=== PATIENT | female | born 1990 | race Caucasian/White ===

== ENCOUNTER 2023-11-26 11:54 | Emergency (ER) | payer OTHER, SELFPAY ==
[2023-11-26 12:13] VITALS: BP 136/92; PULSE 97; RESP 16; TEMP 36.6; O2SAT 99; BMI 34.5
--- NOTE | 2023-11-26 12:15 | ED_ITS ---
HPI - General Adult General Chief complaint: Anxiety Stated complaint: anxiety ? dizzy shakey diff breathing hand numbnes Time Seen by Provider: 11/26/23 18:52 History of Present Illness HPI narrative: The patient is a generally healthy 33-year-old who was on no medications. She says that for the last several days she has felt a sense of an unpleasant sensation in her chest as well as numbness in her hands and her feet and a general sense of anxiety. These symptoms are worse at night and she has been unable to sleep for the last several days. She has had no fever, sweats, chills. No cough or sputum. No nausea or vomiting. No pain or swelling in her legs. She had been caring for an elderly aunt 2 weeks ago. The was expected but she is quite sad about it. Related Data Previous Rx's ?Medication ?Instructions ?Recorded trazodone 50 mg tablet 50 mg PO BEDTIME PRN sleep #7 tabs 11/26/23 Allergies Allergy/AdvReac Type Severity Reaction Status Date / Time No Known Allergies Allergy Verified 11/26/23 12:17 Review of Systems 2 Review of Systems: Yes all other systems are reviewed and are negative [facility] Social History Social History Advance Directives: No Advance Directives Information Provided: No Physical Exam ED Vital Signs: Vital Signs - 24 hr 11/26/23 12:13 11/26/23 19:07 11/26/23 20:08 Temperature 97.8 F 98.0 F 98.0 F Pulse Rate 97 78 78 Respiratory Rate 16 16 16 Blood Pressure 136/92 H 117/82 117/82 Pulse Oximetry 99 98 Oxygen Delivery Method Room Air Room Air BMI result Body Mass Index 34.5 Const Other: The patient has the appearance of being a healthy 33-year-old. She does not appear in distress. HENMT Other: The face is symmetrical. ?Mucous membranes moist. Eyes Other: Pupils are round equal, conjunctivae are clear, extraocular movements intact Neck Other: No JVD, neck is supple Resp Effort & Inspection: normal respiratory effort Auscultation: clear to auscultation bilaterally Cardio Rate: regular rate Rhythm: regular rhythm Heart sounds: S1 normal heart sound present and S2 normal heart sound present GI Other: Abdomen is soft and nontender Skin Other: Skin is dry and unremarkable Neuro Other: The patient is awake and alert. Cranial nerves are grossly intact. She moves her extremities normally and seems grossly neurologically intact. Extrem Other: No calf swelling or tenderness. Course Course Course Narrative: This is an RME: Additional HPI, ROS, PE not included below will be deferred to primary provider. This is a 51-[id number]-female, with no known medical problems, presenting to the emergency department with a complaint of difficulty sleeping, increased anxiety, bilateral hand numbness, tingling, shortness of breath x 2 weeks. Reporting recent in the family, but otherwise no other changes. Reporting intermittent blurred vision and dizziness. She has not on control no recent travel, surgeries, hospitalizations. Plan: Labs, EKG Medications Administered Discontinued Medications Generic Name Dose Route Start Last Admin Trade Name Freq PRN Reason Stop Dose Admin Trazodone HCl 50 mg 11/26/23 19:28 11/26/23 19:59 Trazodone Hcl 50 Mg Tablet PO 11/26/23 19:29 50 mg ONCE ONE Administration Medical Decision Making Medical Decision Making MDM Narrative: the patient is a 33-year-old female who presents for evaluation of symptoms she has been experiencing for the last 2 weeks. She admits to feeling very anxious. She is having difficulty sleeping. She was also having somatic symptoms of chest pain as well as numbness of the hands and feet. An EKG is unremarkable. Labs are unremarkable. Clinically the patient does not appear acutely ill. She is PERC negative. My overall impression is that the patient has symptoms are likely related to anxiety and grief and poor sleeping. She does not have a primary care doctor. She recently moved back to this area from [place]. She has [employer]. She will be encouraged to try to get a regular doctor through the [facility] system. She will be given a prescription for trazodone to see if this helps her was sleeping. She was prescribed 7 tablets of 50 mg of trazodone to be taken at bedtime. Lab Data 11/26/23 12:44 11/26/23 12:44 Labs: Lab Results 11/26/23 11/26/23 Range/Units 12:44 19:27 WBC 11.4 H (4.8-10.8) X10*3/uL RBC 4.45 (4.20-5.50) X10*6/uL Hgb 14.1 (12.0-16.0) g/dl Hct 40.4 (37.0-47.0) % MCV 90.8 (80.0-98.0) fL MCH 31.7 (27.0-33.0) pg MCHC 34.9 (31.0-35.0) g/dl RDW 11.7 (11.0-16.0) % Plt Count 310 (160-400) X10*3/uL MPV 9.6 (9.4-12.3) fL Immature Gran % (Auto) 0.4 (0.0-0.4) % Neut % (Auto) 81.3 H (45-73) % Lymph % (Auto) 11.1 L (20-40) % [place] % (Auto) 5.5 (2-11) % Eos % (Auto) 1.3 (0-4) % Baso % (Auto) 0.4 (0-2) % Lymph # (Auto) 1.3 (1.2-4.9) X10*3/uL [place] # (Auto) 0.6 (0.1-1.2) X10*3/uL Eos # (Auto) 0.2 (0.0-0.4) X10*3/uL Baso # (Auto) 0.0 (0.0-0.2) X10*3/uL Abs Immat Gran (auto) 0.04 H (0.00-0.03) X10*3/uL Absolute Neuts (auto) 9.2 H (2.0-8.3) x10*3/uL Absolute Nucleated RBC 0.000 (0.0-0.012) X10*3/uL Nucleated RBC % (auto) 0.0 (0.0-0.2) /100WBC Sodium 141 (135-145) mmol/L Potassium 4.1 (3.3-5.1) mmol/L Chloride 107 (96-108) mmol/L Carbon Dioxide 24 (22-29) mmol/L Anion Gap 14 (12-20) BUN 15 (9-16) mg/dL Creatinine 0.76 (0.5-1.4) mg/dL Estim Creat Clear Calc 113.1 Estimated GFR > 60 Random Glucose 103 (60-115) mg/dL Calcium 9.9 (8.4-10.2) mg/dL Magnesium 2.2 (1.6-2.6) mg/dL Total Bilirubin 0.2 (0.0-1.0) mg/dL Direct Bilirubin < 0.2 (0.0-0.5) mg/dL AST 18 (5-31) U/L ALT 29 (0-31) U/L Alkaline Phosphatase 60 (39-117) U/L Troponin I High Sens < 2.7 (<3.5-17.0) ng/L Total Protein 7.6 (6.5-8.0) g/dL Albumin 4.7 (3.5-5.0) g/dL TSH 0.79 (0.32-4.0) uIU/mL Beta HCG, Quant < 2 mIU/mL Urine Color Yellow Urine Appearance Cloudy Urine pH 6.5 (5.0-9.0) Ur Specific [place] 1.010 (1.005-1.025) Urine Protein Negative (Neg-Trace) mg/dL Urine Glucose (UA) Negative (Negative) mg/dL Urine Ketones Negative (Negative) mg/dL Urine Blood Large (3+) H (Negative) Urine Nitrite Negative (Negative) Ur Leukocyte Esterase Negative (Negative) Urine RBC 11-20 H (0-2) /HPF Urine WBC 0-5 (0-5) /HPF Ur Squamous Epith Cells 6-10 (0-2) /HPF Urine Bacteria Trace (None Seen) Hyaline Casts 0-2 (0-2) /LPF Discharge Plan Discharge Clinical Impression: Difficulty sleeping, Anxiety Patient Disposition: Home, Self-Care Instructions: Insomnia (ED) Additional Instructions: Your medical testing today has been very reassuring. I do not think there is any dangerous medical process at work. I have sent a prescription for medication called trazodone that can help with sleep. You may try this to see if it helps with your sleeping difficulties. Please work on getting a new primary care doctor. You can contact [employer] in [place]. If at any point you would like to speak to somebody confidentially have out how you are feeling you can contact the [employer] [facility] [employer] 24 hours a day at their crisis hotline [phone]. Return to the emergency room if significantly worse. Prescriptions: New trazodone 50 mg tablet 50 mg PO BEDTIME PRN (Reason: sleep) Qty: 7 0RF Referrals: Kay kristen. [facility] [Provider Group] (anxiety, difficulty sleeping) Interventions: ED Discharge Assessment Last Done: 11/26/23 20:08 Discharge Date/Time: 11/26/23 20:09 Print Language: Ugandan
--- NOTE | 2023-11-26 12:20 | ECG_ITS ---
Test Reason : CP, SOB Blood Pressure : / mmHG Vent. Rate : 088 BPM Atrial Rate : 088 BPM P-R Int : 152 ms QRS Dur : 082 ms QT Int : 338 ms P-R-T Axes : 077 060 043 degrees QTc Int : 408 ms Normal sinus rhythm with sinus arrhythmia Normal ECG No previous ECGs available Referred By: Cheryl Meeks Electronically Signed By:Raymond Negrete
[2023-11-26 12:49] LABS: MANUAL DIFF FLAG NO
[2023-11-26 12:52] LABS: Basophils Percent Auto 0.4 % (0-2); Eosinophils Absolute Auto 0.2 X10*3/uL (0.0-0.4); Eosinophils Percent Auto 1.3 % (0-4); Hematocrit 40.4 % (37.0-47.0); Hemoglobin 14.1 g/dl (12.0-16.0); Imm Gran Abs Auto 0.04 X10*3/uL (0.00-0.03); Imm Gran Pct Auto 0.4 % (0.0-0.4); Lymphocytes Absolute Auto 1.3 X10*3/uL (1.2-4.9); Lymphocytes Percent Auto 11.1 % (20-40); Mean Corpuscular HGB Conc 34.9 g/dl (31.0-35.0); Mean Corpuscular Hemoglobin 31.7 pg (27.0-33.0); Mean Corpuscular Volume 90.8 fL (80.0-98.0); Mean Platelet Volume 9.6 fL (9.4-12.3); Monocytes Absolute Auto 0.6 X10*3/uL (0.1-1.2); Monocytes Percent Auto 5.5 % (2-11); Neutrophils Absolute Auto 9.2 x10*3/uL (2.0-8.3); Neutrophils Percent Auto 81.3 % (45-73); Platelet Count 310 X10*3/uL (160-400); Red Blood Count 4.45 X10*6/uL (4.20-5.50); Red Cell Distribution Width 11.7 % (11.0-16.0); White Blood Count 11.4 X10*3/uL (4.8-10.8)
[2023-11-26 13:19] LABS: Alanine Aminotransferase 29 U/L (0-31); Albumin Level 4.7 g/dL (3.5-5.0); Alkaline Phosphatase 60 U/L (39-117); Anion Gap 14 (12-20); Aspartate Amino Transferase 18 U/L (5-31); Bilirubin Direct < 0.2 mg/dL (0.0-0.5); Bilirubin Total 0.2 mg/dL (0.0-1.0); Blood Urea Nitrogen 15 mg/dL (9-16); Calcium 9.9 mg/dL (8.4-10.2); Carbon Dioxide 24 mmol/L (22-29); Chloride 107 mmol/L (96-108); Creatinine Clr Calc Pharmacy 113.1; Estimated Glomerular Filt Rate > 60; Glucose Random 103 mg/dL (60-115); Magnesium 2.2 mg/dL (1.6-2.6); Potassium 4.1 mmol/L (3.3-5.1); Sodium 141 mmol/L (135-145); Total Protein 7.6 g/dL (6.5-8.0)
[2023-11-26 13:21] LABS: HCG Quantitative < 2 mIU/mL; Troponin-I High Sensitivity < 2.7 ng/L (<3.5-17.0)
[2023-11-26 13:35] LABS: TSH reflex Free T4 0.79 uIU/mL (0.32-4.0)
[2023-11-26 19:07] VITALS: BP 117/82; PULSE 78; RESP 16; TEMP 36.7; O2SAT 98
--- NOTE | 2023-11-26 19:08 | MHC.EDTECH ---
This Pct just assumed care of Patient ,Vitals taken ,Waiting to collect urine sample ,Call hernandez within Pt reach .
--- NOTE | 2023-11-26 19:27 | MHC.EDTECH ---
Patient urine sample collected and sent to lab .
[2023-11-26] MEDS: traZODone HCL 50 MG TABLET PO (19:59)
[2023-11-26 20:01] LABS: Appearance Urine Cloudy; Color Urine Yellow; Glucose Urine UA Negative (Negative); Leukocyte Esterase Urine Negative (Negative); Nitrite Urine Negative (Negative); PH 6.5 (5.0-9.0); UMIC TRIGGER UACC YES; Urine Blood Large (3+) (Negative); Urine Ketones Negative (Negative); Urine Protein Negative (Neg-Trace)
[2023-11-26 20:08] VITALS: BP 117/82; PULSE 78; RESP 16; TEMP 36.7
[2023-11-26 20:13] LABS: Bacteria Urine Trace (None Seen); Hyaline Casts Urine 0-2 /LPF (0-2); WBC Urine 0-5 /HPF (0-5)
== END 2023-11-26 20:09 | disposition home or self-care (01) ==
PROVIDERS: Physician Assistant Medical; Emergency Provider Emergency Medicine
DX: G47.9 Sleep disorder, unspecified (principal); F41.8 Other specified anxiety disorders; R07.89 Other chest pain; R06.02 Shortness of breath; I49.8 Other specified cardiac arrhythmias; Z79.899 Other long term (current) drug therapy
CPT/HCPCS: 36415; 80048; 80076; 81001; 81003; 83735; 84443; 84484; 84702; 85025; 93005; 99283; 99284

== ENCOUNTER → 2023-11-26 12:20 | Outpatient (BNV) | payer OTHER, SELFPAY | PROVIDERS: Emergency Provider Emergency Medicine; Visit Provider Internal Medicine Cardiovascular Disease | DX: R07.9 Chest pain, unspecified (principal); R06.02 Shortness of breath | CPT/HCPCS: 93010 ==

== ENCOUNTER 2024-06-08 14:04 | Emergency (ER) | payer OTHER, SELFPAY ==
--- NOTE | ~2024-06-08 | XR_ITS ---
EXAMINATION: XR CHEST 2 VIEW CLINICAL INFORMATION: Chest pain COMPARISON: None TECHNIQUE: PA and lateral views of the chest obtained. FINDINGS: The lungs are clear. There are no pleural effusions. The cardiomediastinal silhouette is normal. XR/XR chest 2V IMPRESSION: No acute cardiopulmonary disease. Electronically signed by: Lb Lindsay MD 06/08/2024 03:10 PM EDT
[2024-06-08 14:16] VITALS: BP 124/85; PULSE 84; RESP 18; TEMP 36.4; O2SAT 100; BMI 24.7
--- NOTE | 2024-06-08 14:16 | ED.GENADULT ---
HPI - General Adult General Chief complaint: Dizziness Stated complaint: dizziness Time Seen by Provider: 06/08/24 17:27 History of Present Illness ED Provider: Darlyn HERNANDEZ narrative: The patient is a 34-year-old female comes to the hospital because she felt lightheaded at work today. Apparently she felt rather abruptly unwell as if she might pass out. She felt dizzy and lightheaded. She has had no fevers, sweats, chills. Has been eating and drinking normally. No significant headache. No chest pain. No abdominal pain. No nausea or vomiting. The patient was seen here in November for poor sleeping. She was prescribed a trial of trazodone at that time. She did not feel the trazodone worked for her. The patient lives with her and has 2 small children. 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 She does not have a PCP. Related Data Previous Rx's ?Medication ?Instructions ?Recorded trazodone 50 mg tablet 50 mg PO BEDTIME PRN sleep #7 tabs 11/26/23 hydroxyzine pamoate 25 mg capsule 25 mg PO BEDTIME PRN difficulty 06/08/24 sleeping #20 caps Allergies Allergy/AdvReac Type Severity Reaction Status Date / Time No Known Allergies Allergy Verified 06/08/24 14:18 Review of Systems Review of Systems: Yes all other systems are reviewed and are negative PMFSH Social History Social History Advance Directives: Yes Advance Directives Information Provided: Yes Advance Directives on File: No Physical Exam ED Vital Signs: Vital Signs - 24 hr 06/08/24 14:16 06/08/24 17:27 06/08/24 17:28 Temperature 97.6 F Pulse Rate 84 76 78 Respiratory Rate 18 Blood Pressure 124/85 113/67 115/76 Pulse Oximetry 100 Oxygen Delivery Method Room Air 06/08/24 17:29 06/08/24 18:05 06/08/24 18:55 Temperature 97.6 F 97.6 F Pulse Rate 98 82 82 Respiratory Rate 18 18 Blood Pressure 115/72 116/78 116/78 Pulse Oximetry 100 100 Oxygen Delivery Method Room Air Room Air BMI result Body Mass Index 24.7 Const Other: The patient looks as though she is an ordinarily healthy 34-year-old. She has a somewhat subdued demeanor but does not seem in distress. HENMT Other: Face is symmetrical. Mucous membranes moist. The pharynx is normal. Eyes Other: Pupils are round, equal, and reactive to light. Extraocular movements are intact. There is no nystagmus. Conjunctivae are clear. Neck Other: Neck is supple, no adenopathy. Resp Effort & Inspection: normal respiratory effort Auscultation: clear to auscultation bilaterally Cardio Rate: regular rate Rhythm: regular rhythm Heart sounds: S1 normal heart sound present and S2 normal heart sound present GI Other: Abdomen is soft and nontender Skin Other: Skin is dry and unremarkable. Neuro Other: The patient is awake and alert. She has a subdued affect but a normal mental status. Cranial nerves 2-12 are intact. She moves her extremities normally and appropriately. Reflexes are intact. Extrem Other: No peripheral edema Course Course Course Narrative: This is an RME performed by Monster Malik CNP: Additional HPI, ROS, PE not included below will be deferred to primary provider. Patient is a 34-year-old female who presents emergency department for evaluation of dizziness. Reports that while at work this began, she felt unsteady on her feet, having vision, legs felt weak like she was going to pass out. Reports that she had a substantial breakfast this morning. She does endorse having diffuse anterior chest tightness and shortness of breath, feels shaky. Recently she has been experiencing a nonproductive cough. Plan: ECG, serum labs, viral serologies, CXR Medical Decision Making Medical Decision Making MDM Narrative: The patient is a 34-year-old female who presents feeling dizzy and lightheadedness and near syncopal at work. Here in the emergency room her vital signs are unremarkable and her physical exam is also unremarkable. Labs were done that were essentially nondiagnostic. EKG was unremarkable. She is PERC negative. test is negative. I felt the patient's medical workup was essentially negative. I spoke to the patient about whether she is under any kind of stress. At that point she became tearful. She seems to have a lot of life stressors at work and she also hinted at some childhood traumas. I asked the care team to see the patient. The patient was seen by a care team clinician who provided outpatient resources and made a referral to a counseling agency. The patient requested something to help her sleep. I had seen her in November and prescribed a trial of trazodone. She said that she only took the trazodone for 2 days and that it did not help her was sleeping. She fell with the trazodone read things worse. Today I will prescribe hydroxyzine has a trial. She also does not have a primary care doctor and she is encouraged to try to get a primary care doctor. Lab Data 06/08/24 14:38 06/08/24 14:38 Labs: Lab Results 06/08/24 Range/Units 14:38 WBC 7.7 (4.8-10.8) X10*3/uL RBC 4.15 L (4.20-5.50) X10*6/uL Hgb 13.3 (12.0-16.0) g/dl Hct 38.1 (37.0-47.0) % MCV 91.8 (80.0-98.0) fL MCH 32.0 (27.0-33.0) pg MCHC 34.9 (31.0-35.0) g/dl RDW 11.3 (11.0-16.0) % Plt Count 236 (160-400) X10*3/uL MPV 9.9 (9.4-12.3) fL Immature Gran % (Auto) 0.3 (0.0-0.4) % Neut % (Auto) 66.1 (45-73) % Lymph % (Auto) 22.7 (20-40) % [place] % (Auto) 8.1 (2-11) % Eos % (Auto) 2.3 (0-4) % Baso % (Auto) 0.5 (0-2) % Lymph # (Auto) 1.8 (1.2-4.9) X10*3/uL [place] # (Auto) 0.6 (0.1-1.2) X10*3/uL Eos # (Auto) 0.2 (0.0-0.4) X10*3/uL Baso # (Auto) 0.0 (0.0-0.2) X10*3/uL Abs Immat Gran (auto) 0.02 (0.00-0.03) X10*3/uL Absolute Neuts (auto) 5.1 (2.0-8.3) x10*3/uL Absolute Nucleated RBC 0.000 (0.0-0.012) X10*3/uL Nucleated RBC % (auto) 0.0 (0.0-0.2) /100WBC PT 12.0 (10.9-12.4) SEC INR 1.0 (0.9-1.1) Sodium 138 (135-145) mmol/L Potassium 3.6 (3.3-5.1) mmol/L Chloride 106 (96-108) mmol/L Carbon Dioxide 25 (22-29) mmol/L Anion Gap 11 L (12-20) BUN 14 (9-16) mg/dL Creatinine 0.73 (0.5-1.4) mg/dL Estim Creat Clear Calc 91.5 Estimated GFR > 60 Random Glucose 88 (60-115) mg/dL Calcium 9.7 (8.4-10.2) mg/dL Magnesium 2.0 (1.6-2.6) mg/dL Total Bilirubin 0.2 (0.0-1.0) mg/dL AST 26 (5-31) U/L ALT 34 H (0-31) U/L Alkaline Phosphatase 58 (39-117) U/L Troponin I High Sens < 2.7 (<3.5-17.0) ng/L Total Protein 7.5 (6.5-8.0) g/dL Albumin 4.6 (3.5-5.0) g/dL TSH 1.13 (0.32-4.0) uIU/mL Urine Color Yellow Urine Appearance Clear Urine pH 6.5 (5.0-9.0) Ur Specific [place] <= 1.005 (1.005-1.025) Urine Protein Negative (Neg-Trace) mg/dL Urine Glucose (UA) Negative (Negative) mg/dL Urine Ketones Negative (Negative) mg/dL Urine Blood Negative (Negative) Urine Nitrite Negative (Negative) Ur Leukocyte Esterase Negative (Negative) Urine Test NEGATIVE (NEGATIVE) Influenza Type A (PCR) NEGATIVE (Negative) Influenza Type B (PCR) NEGATIVE (Negative) RSV RNA Qual (PCR) NEGATIVE (Negative) SARS-CoV-2 RNA (RT-PCR) NEGATIVE (Negative) Discharge Plan Discharge Clinical Impression: Dizziness, Difficulty sleeping Patient Disposition: Home, Self-Care Additional Instructions: Your medical testing today was very reassuring. I do not think there is any acutely dangerous medical process at work. I have added on a thyroid test to your blood work. I will call you if this is abnormal. You were seen by one of the Care Team counselors. They have made a referral to a local counseling agency. You should be getting a call from the agency next week. I have sent a prescription for a medication called hydroxyzine that you may use at bedtime to see if this might help you with sleeping. Please continue your efforts to try to get a primary care doctor. You might want to try the office in [place] of [facility]. Return to the emergency room if significantly worse. Prescriptions: New hydroxyzine pamoate 25 mg capsule 25 mg PO BEDTIME PRN (Reason: difficulty sleeping) Qty: 20 0RF No Action trazodone 50 mg tablet 50 mg PO BEDTIME PRN (Reason: sleep) Qty: 7 0RF Referrals: [facility] [Outside] Stand Alone Forms: Work/School Release Interventions: ED Discharge Assessment Last Done: 06/08/24 18:55 Discharge Date/Time: 06/08/24 18:55 Print Language: Botswanan
--- NOTE | 2024-06-08 14:18 | ECG_ITS ---
Test Reason : OMORUNA Blood Pressure : / mmHG Vent. Rate : 083 BPM Atrial Rate : 083 BPM P-R Int : 150 ms QRS Dur : 086 ms QT Int : 360 ms P-R-T Axes : 074 057 066 degrees QTc Int : 423 ms Normal sinus rhythm with sinus arrhythmia Normal ECG When compared with ECG of 26-NOV-2023 12:36, No significant change was found Referred By: Rashida Malik Electronically Signed By:Raymond Negrete
[2024-06-08 14:48] LABS: Basophils Percent Auto 0.5 % (0-2); Eosinophils Absolute Auto 0.2 X10*3/uL (0.0-0.4); Eosinophils Percent Auto 2.3 % (0-4); Hematocrit 38.1 % (37.0-47.0); Hemoglobin 13.3 g/dl (12.0-16.0); Imm Gran Abs Auto 0.02 X10*3/uL (0.00-0.03); Imm Gran Pct Auto 0.3 % (0.0-0.4); Lymphocytes Absolute Auto 1.8 X10*3/uL (1.2-4.9); Lymphocytes Percent Auto 22.7 % (20-40); MANUAL DIFF FLAG NO; Mean Corpuscular HGB Conc 34.9 g/dl (31.0-35.0); Mean Corpuscular Volume 91.8 fL (80.0-98.0); Mean Platelet Volume 9.9 fL (9.4-12.3); Monocytes Absolute Auto 0.6 X10*3/uL (0.1-1.2); Monocytes Percent Auto 8.1 % (2-11); Neutrophils Absolute Auto 5.1 x10*3/uL (2.0-8.3); Neutrophils Percent Auto 66.1 % (45-73); Platelet Count 236 X10*3/uL (160-400); Red Blood Count 4.15 X10*6/uL (4.20-5.50); Red Cell Distribution Width 11.3 % (11.0-16.0); White Blood Count 7.7 X10*3/uL (4.8-10.8)
[2024-06-08 15:02] LABS: Alanine Aminotransferase 34 U/L (0-31); Albumin Level 4.6 g/dL (3.5-5.0); Alkaline Phosphatase 58 U/L (39-117); Anion Gap 11 (12-20); Aspartate Amino Transferase 26 U/L (5-31); Bilirubin Total 0.2 mg/dL (0.0-1.0); Blood Urea Nitrogen 14 mg/dL (9-16); Calcium 9.7 mg/dL (8.4-10.2); Carbon Dioxide 25 mmol/L (22-29); Chloride 106 mmol/L (96-108); Creatinine Clr Calc Pharmacy 91.5; Estimated Glomerular Filt Rate > 60; Glucose Random 88 mg/dL (60-115); Potassium 3.6 mmol/L (3.3-5.1); Sodium 138 mmol/L (135-145); Total Protein 7.5 g/dL (6.5-8.0)
[2024-06-08 15:03] LABS: Appearance Urine Clear; Color Urine Yellow; Glucose Urine UA Negative (Negative); Leukocyte Esterase Urine Negative (Negative); Nitrite Urine Negative (Negative); PH 6.5 (5.0-9.0); Specific Gravity - Urine <= 1.005 (1.005-1.025); Urine Blood Negative (Negative); Urine Ketones Negative (Negative); Urine Protein Negative (Neg-Trace)
[2024-06-08 15:04] LABS: UPreg QC Valid YES; Urine Pregnancy NEGATIVE (NEGATIVE)
[2024-06-08 15:11] LABS: Troponin-I High Sensitivity < 2.7 ng/L (<3.5-17.0)
[2024-06-08 15:28] LABS: Influenza A PCR NEGATIVE (Negative); Influenza B PCR NEGATIVE (Negative); Resp Syncy Virus RNA Qual PCR NEGATIVE (Negative); SARS COV2 PCR INHOUSE NEGATIVE (Negative)
[2024-06-08 17:27] VITALS: BP 113/67; PULSE 76
[2024-06-08 17:28] VITALS: BP 115/76; PULSE 78
[2024-06-08 17:29] VITALS: BP 115/72; PULSE 98
[2024-06-08 18:05] VITALS: BP 116/78; PULSE 82; RESP 18; TEMP 36.4; O2SAT 100
--- NOTE | 2024-06-08 18:49 | MHC.CARE ---
Patient seen and cleared by CARE team, no current SI/ HI, referred to [facility] as agreed upon with patient.
[2024-06-08 18:55] VITALS: BP 116/78; PULSE 82; RESP 18; TEMP 36.4; O2SAT 100
[2024-06-08 19:23] LABS: Thyroid Stimulating Hormone 1.13 uIU/mL (0.32-4.0)
--- NOTE | 2024-06-08 22:34 | MHC.CARE ---
RAD Team emailed [facility] referral for this pt. Will follow up Tuesday
== END 2024-06-08 18:55 | disposition home or self-care (01) ==
PROVIDERS: Nurse Practitioner Family; Emergency Provider Emergency Medicine
DX: R42 Dizziness and giddiness (principal); G47.00 Insomnia, unspecified; I49.8 Other specified cardiac arrhythmias; Z79.899 Other long term (current) drug therapy; Z03.818 Encounter for observation for suspected exposure to other biological agents ruled out
CPT/HCPCS: 0241U; 71046; 80053; 81003; 81025; 83735; 84443; 84484; 85025; 85610; 93005; 99284; S9485

== ENCOUNTER → 2024-06-08 14:18 | Outpatient (BNV) | payer OTHER, SELFPAY | PROVIDERS: Emergency Provider Emergency Medicine; Visit Provider Internal Medicine Cardiovascular Disease | DX: R42 Dizziness and giddiness (principal) | CPT/HCPCS: 93010 ==

== ENCOUNTER 2024-06-25 20:39 | Emergency (ER) | payer OTHER, SELFPAY ==
--- NOTE | ~2024-06-25 | XR_ITS ---
EXAMINATION: XR LUMBOSACRAL SPINE CLINICAL INFORMATION: Low back pain. Injury. COMPARISON: None available. TECHNIQUE: Three views of the lumbosacral spine. FINDINGS: No evidence of acute compression deformity or subluxation. Intervertebral disc heights are maintained. Normal appearance of the posterior elements. SI joints are symmetric. No significant paraspinal soft tissue abnormality. XR/XR lumbar spine 2-3V IMPRESSION: No significant radiographic abnormality. Electronically signed by: Betsy Liang MD 06/25/2024 10:33 PM [facility]
[2024-06-25 20:44] VITALS: BP 128/80; PULSE 92; RESP 18; TEMP 36.8; O2SAT 98; BMI 23.6
--- NOTE | 2024-06-25 20:46 | ED_ITS ---
HPI - General Adult General Chief complaint: Fall Stated complaint: fall Source: patient Mode of arrival: ambulatory Limitations: no limitations History of Present Illness ED Provider: Joyce Granados PA-C HPI narrative: Patient is a 34 year old assigned female at with no reported medical history presenting to the emergency department today with low back pain after sliding off of her bed. Patient states that yesterday she slid off of her bed and hit her back, causing pain. Patient denies any dizziness, lightheadedness, abdominal pain, nausea, vomiting, fever, chills, blurry vision, double vision, loss of vision, chest pain, difficulty breathing, shortness of breath, night sweats, pain with urination, increased urinary frequency, increased urinary urgency, blood in her urine or stool, syncope or a near syncopal episode, bowel incontinence, bladder incontinence, or any other complaints at this time. Onset (ago): day(s) (1) Location: back Relieving factors: none Exacerbating factors: none Associated symptoms: denies other symptoms Treatments prior to arrival: none Related Data Previous Rx's ?Medication ?Instructions ?Recorded trazodone 50 mg tablet 50 mg PO BEDTIME PRN sleep #7 tabs 11/26/23 hydroxyzine pamoate 25 mg capsule 25 mg PO BEDTIME PRN difficulty 06/08/24 sleeping #20 caps Allergies Allergy/AdvReac Type Severity Reaction Status Date / Time No Known Allergies Allergy Verified 06/25/24 20:47 Review of Systems Constitutional: Constitutional: Reports no additional constitutional complaints, Denies chills, Denies fever(s) and Denies night sweats Eyes: Eyes: Reports no additional eye complaints, Denies blurry vision, Denies change in vision, Denies diplopia, Denies eye discharge, Denies loss of vision and Denies eye pain ENT: Denies dizziness Cardiovascular: Cardiovascular: Reports no additional cardiovascular complaints, Denies chest pain, Denies lightheadedness, Denies Loss of Consciousness and Denies dyspnea Respiratory: Respiratory: Reports no additional respiratory complaints and Denies dyspnea Gastrointestinal: Gastrointestinal: Reports no additional gastrointestinal complaints, Denies abdominal pain, Denies melena, Denies hematochezia, Denies change in bowel habits and Denies change in stool character Genitourinary: Genitourinary: Denies hematuria, Denies urinary frequency, Denies dysuria, Denies urinary incontinence, Denies urinary hesitancy and Denies urinary urgency Musculoskeletal: Musculoskeletal: Reports no additional musculoskeletal complaints, Reports back pain, Denies numbness and Denies tingling Neurologic: Denies dizziness, Denies loss of vision, Denies numbness and Denies tingling Psychiatric: Psychiatric: Reports no additional psychiatric complaints Endocrine: Endocrine: Reports no additional endocrine complaints Hematologic/Lymphatic: Hematologic/Lymphatic: Reports no additional hematologic/lymphatic complaints Allergic/Immunologic: Allergic/Immunologic: Reports no additional allergic/immunologic complaints PMFSH Past Medical History Attestation statement: The following information was validated with the patient. Source: old records reviewed and nursing notes reviewed Social History Social History Advance Directives: No Advance Directives Information Provided: No Do you have a plan to hurt others: No Plan Physical Exam ED Vital Signs: BMI result Body Mass Index 23.6 Const General: cooperative, no acute distress, alert and awake Nutritional Appearance: well nourished Orientation/consciousness: patient oriented x3 Limitations: no limitations HENMT Head: Yes normal to inspection and Yes atraumatic Ears: hearing grossly normal bilaterally and external ears normal General nose exam: Normal external nose present, no nasal discharge noted and no epistaxis Face and sinus: Yes normal facial exam, No abrasion and No laceration Mouth: Normal oral and palatal mucosa present, no drooling and no muffled voice Eyes General: appearance normal, both eyes and all related structures Periorbital: periorbital findings normal Eyelids: Yes eyelids normal Conjunctivae: conjunctivae normal Pupils: Equal, round and reactive pupils present EOM: EOMs intact bilaterally Neck Neck: Yes normal visual inspection, Yes full ROM and Yes no lymphadenopathy Chest Chest palpation & inspection: normal inspection of the chest Resp Effort & Inspection: normal respiratory effort and able to speak in complete sentences GI Inspection: Yes normal to inspection Neuro General: patient oriented x3 and moves all extremities Cranial nerves: Yes Equal, round and reactive pupils present Cognition (Neuro): normal cognition Extrem General: Yes normal to inspection, Yes full ROM and Yes capillary refill normal Psych Appearance: grossly normal Mental Status: mental status grossly normal Affect: normal affect Attitude: cooperative Thought process: Normal thought process present Thought content: Normal thought content present Insight: Good insight present (Psych) Course Course Course Narrative: RME performed by Joyce Granados PA-C. Patient is a 34 year old assigned ton guevara at presenting to the emergency department with low back pain. Patient states she fell off of her bed on 06/24/2024 and hurt her back. Patient states that she is now having shooting low back pain that is much worse than it was yesterday after the incident. Detailed physical exam and review of systems are deferred to the billing clinician. Imaging ordered. Patient placed back in the waiting room pending room availability and results. Medical Decision Making Medical Decision Making MDM Narrative: Patient is a 34 year old assigned female at with no reported medical history presenting to the emergency department today with low back pain. Patient's limited physical exam performed in triage was unremarkable. Patient's lumbar spine x-ray showed no acute process. Patient left the department without completing treatment. Patient left the department before myself or any of the other emergency department clinicians could explain to or review with the patient; physical exam findings, test results, need or lack there of for additional testing, need or lack there of for a procedure to be performed, need or lack there of for hospital admission / transfer, need or lack there of for prescription medication, treatment options, or a treatment plan. Differential Diagnosis Differential Diagnoses: The differential diagnosis associated with the presentation includes Low back pain Low back strain Admission/Observation Consideration of admission/observation: Escalation of care including admission/observation considered Patient would have been admitted to the hospital had she completed her work up and it had any findings where hospital admission was appropriate, her clinical presentation warranted hospital admission, had myself or any other emergency green end department supervisor had the ability to discuss need or lack there of for hospital admission, and the patient hadn't left the department without completing treatment. Independent Interpretation I performed an independent interpretation of an: Plain X-Ray Interpretation: My interpretation is in agreement with the radiologist's impression of this imaging study. EXAMINATION: XR LUMBOSACRAL SPINE CLINICAL INFORMATION: Low back pain. Injury. COMPARISON: None available. TECHNIQUE: Three views of the lumbosacral spine. FINDINGS: No evidence of acute compression deformity or subluxation. Intervertebral disc heights are maintained. Normal appearance of the posterior elements. SI joints are symmetric. No significant paraspinal soft tissue abnormality. XR/XR lumbar spine 2-3V IMPRESSION: No significant radiographic abnormality. Electronically signed by: Betsy Liang MD 06/25/2024 10:33 PM [facility] Dictated By: Betsy Liang Signed By: Electronically signed by Betsy Liang 06/25/24 [id number] Radiology Impression Discussion of test interpretation with radiology: I have reviewed the radiologist's reading. Discharge Plan Discharge Clinical Impression: Low back pain Patient Disposition: Left W/O Completing Treatment Prescriptions: No Action trazodone 50 mg tablet 50 mg PO BEDTIME PRN (Reason: sleep) Qty: 7 0RF hydroxyzine pamoate 25 mg capsule 25 mg PO BEDTIME PRN (Reason: difficulty sleeping) Qty: 20 0RF Interventions: LWBS Worksheet Last Done: 06/25/24 22:35 Discharge Date/Time: 06/25/24 22:37 Print Language: [place]
--- NOTE | 2024-06-25 22:22 | PC.NURSE ---
Pt no answer when called for reassessment.
--- NOTE | 2024-06-25 22:30 | PC.NURSE ---
Pt no answer when called for reassessment.
== END 2024-06-25 22:37 | disposition left against medical advice (07) ==
PROVIDERS: Emergency Provider Emergency Medicine
DX: M54.50 Low back pain, unspecified (principal)
CPT/HCPCS: 72100; 99281; 99283

== ENCOUNTER 2024-09-05 11:06 | Emergency (ER) | payer OTHER, SELFPAY ==
[2024-09-05 11:17] VITALS: BP 113/73; PULSE 73; RESP 16; TEMP 36.4; O2SAT 100; BMI 23.3
--- NOTE | 2024-09-05 11:21 | ED.GENADULT ---
HPI - General Adult General Chief complaint: Neuro Symptoms/Deficit Stated complaint: Blurred Vision Sent by Urgent Care Time Seen by Provider: 09/05/24 16:33 Source: patient and RN notes reviewed Mode of arrival: ambulatory Limitations: no limitations History of Present Illness ED Provider: Cheryl Meeks PA-C HPI narrative: This is a 34-year-old female, with a hx of anxiety, who presents emergency department with concerns for dizziness. Pt reports that she has a hx of dizziness but states that she has not had dizziness episodes for this long. States she has had intermittent dizziness for 1 week. She states that she is not currently dizzy, however positional changes seem to exacerbate the issue. She states no recent illness, fevers, chills, abdominal pain, nausea, vomiting or diarrhea. She is not on control, denies recent travel, surgeries, hospitalizations, hx of blood clots or cancer hx. She states that she has had intermittent chest tightness and soreness, but states that this is a chronic issue and was told that it was her anxiety. She denies any severe headache, changes in vision, double vision, blurred vision. She does admit to being under a significant amount of stress, does not have a good support system, and has not been sleeping well. She does have a therapist in which she has a good relationship with. No other complaints or concerns at this time. MD complaint: Dizziness Onset (ago): day(s) Related Data Previous Rx's ?Medication ?Instructions ?Recorded trazodone 50 mg tablet 50 mg PO BEDTIME PRN sleep #7 tabs 11/26/23 hydroxyzine pamoate 25 mg capsule 25 mg PO BEDTIME PRN difficulty 06/08/24 sleeping #20 caps meclizine 12.5 mg tablet 12.5 mg PO TID PRN dizziness #14 09/05/24 tabs Allergies Allergy/AdvReac Type Severity Reaction Status Date / Time No Known Allergies Allergy Verified 09/05/24 11:18 Review of Systems Review of Systems: Yes all other systems are reviewed and are negative Constitutional: Constitutional: Reports as per [facility] Social History Social History Advance Directives: No Advance Directives Information Provided: Yes Do you have a plan to hurt others: No Plan Physical Exam ED Vital Signs: Vital Signs - 24 hr 09/05/24 11:17 09/05/24 15:06 09/05/24 17:18 Temperature 97.5 F 98.1 F Pulse Rate 73 80 71 Respiratory Rate 16 18 Blood Pressure 113/73 111/63 114/73 Pulse Oximetry 100 100 Oxygen Delivery Method Room Air Room Air 09/05/24 17:18 09/05/24 17:18 09/05/24 18:22 Temperature 98.1 F Pulse Rate 82 85 75 Respiratory Rate 16 Blood Pressure 117/81 115/80 99/53 L Pulse Oximetry 99 Oxygen Delivery Method Room Air 09/05/24 19:01 Temperature 98.1 F Pulse Rate 75 Respiratory Rate 16 Blood Pressure 99/53 L Pulse Oximetry 99 Oxygen Delivery Method Room Air BMI result Body Mass Index 23.3 Const General: cooperative, comfortable and no acute distress Orientation/consciousness: patient oriented x3 Limitations: no limitations HENMT Other: No nystagmus Head: Yes normal to inspection, Yes normocephalic and Yes atraumatic Ears: hearing grossly normal bilaterally General nose exam: Normal external nose present Face and sinus: Yes normal facial exam Mouth: Normal oral and palatal mucosa present, oropharynx normal and moist mucous membranes Throat: Yes posterior oropharynx normal Eyes General: appearance normal, both eyes and all related structures Eyelids: Yes eyelids normal Conjunctivae: conjunctivae normal Sclerae: sclerae normal Pupils: Equal, round and reactive pupils present EOM: EOMs intact bilaterally Neck Neck: Yes normal visual inspection, Yes full ROM, Yes no lymphadenopathy and Yes no meningeal signs Lymphatic: no lymphadenopathy noted Chest Chest palpation & inspection: normal inspection of the chest Resp Effort & Inspection: normal respiratory effort and able to speak in complete sentences Auscultation: clear to auscultation bilaterally, no crackles, no rales, no rhonchi and no wheezes Cardio Rate: regular rate Rhythm: regular rhythm Heart sounds: S1 normal heart sound present and S2 normal heart sound present GI Inspection: Yes normal to inspection Skin General skin exam: no rashes or lesions noted Trauma: no lacerations or abrasions Wounds: no wounds Neuro General: patient oriented x3, moves all extremities and no meningeal signs Cranial nerves: Yes CN's II-XII intact bilaterally, Yes Facial sensation intact/muscles of mastication intact, Yes Equal, round and reactive pupils present, Yes Symmetric palate elevation present, Yes Ability to bilaterally rotate head present and Yes Ability to bilaterally elevate shoulders present Cognition (Neuro): normal cognition Gait exam (Neuro): Normal gait present Motor exam (neuro): 5/5 motor strength present throughout and Pronator motor function not present Coordination: [id number] test normal and Romberg test negative Extrem General: Yes normal to inspection Right upper extremity: normal to inspection Left upper extremity: normal to inspection Right lower extremity: normal to inspection Left lower extremity: normal to inspection NIH Stroke Scale Internal: Initial- Upon Arrival Time: 11:22 Level of Consciousness: Alert Level of Consciousness Questions: Answers both questions correctly Level of Consciousness Commands: Performs both tasks correctly Best Gaze: Normal Visual: No visual loss Facial Palsy: Normal Motor Arm (Right): No drift Motor Arm (Left): No drift Motor Leg (Right): No drift Motor Leg (Left): No drift Limb Ataxia: Absent Sensory: Normal Best Language: No aphasia Dysarthia: Normal Extinction and Inattention: No abnormality Score: 0 Course Course Course Narrative: This is a rapid medical exam performed by Stu Soares NP: Additional HPI, ROS, PE not included below will be deferred to primary provider. Patient is a 34-year-old female presenting to the ED with complaint of headaches, lightheadedness, chest pain, leg numbness, nausea for the past week. NIHSS 0. Complains of intermittent blurred vision which she describes as I space out and everything gets blurry. Plan: ekg, labs, viral serology Medical Decision Making Medical Decision Making MDM Narrative: This is aa [id number], with a hx of anxiety, who presents to the ER with complaints of dizziness. She reports that she has had this issue on and off for a while , but has been present for 1 week. Sxs only exacerbated with positional changes. Also endorses intermittent CP, which she has had for months, no new CP. On examination, her vital signs are WNL. She is speaking in full sentences under no acute distress. Full Neurologic examination revealing no acute deficits. She has had no head strike or LOC. She is not anticoagulated. Orthostatic vital signs performed which reveal she is not orthostatic. EKG NSR with no acute ischemic changes. Labs performed and she has a normal H&H, no signs of anemia, neg trop x2, no evidence of CARLA. TSH WNL, neg hcg. urine unremarkable. Discussed overall reassuring examination and workup today. Unclear what is causing her symptoms but may be attributed to BPPV. She will trial meclizine and f/u with PCP. Pt was given strict return precautions. She understands and agrees with plan. Stable for d/c Differential Diagnosis Differential Diagnoses: The differential diagnosis associated with the presentation includes BPPV, electrolyte derangement, orthostatic hypotension, viral illness Admission/Observation Consideration of admission/observation: Escalation of care including admission/observation considered Escalation of care including admission/observation considered however given workup today not warranted at this time. Lab Data [facility] Lab Attestation statement: I reviewed the patient's lab results. See [facility] 09/05/24 11:52 09/05/24 11:52 Labs: Lab Results 09/05/24 09/05/24 09/05/24 Range/Units 11:52 12:01 17:11 WBC 7.8 (4.8-10.8) X10*3/uL RBC 4.19 L (4.20-5.50) X10*6/uL Hgb 13.2 (12.0-16.0) g/dl Hct 38.6 (37.0-47.0) % MCV 92.1 (80.0-98.0) fL MCH 31.5 (27.0-33.0) pg MCHC 34.2 (31.0-35.0) g/dl RDW 11.5 (11.0-16.0) % Plt Count 279 (160-400) X10*3/uL MPV 10.2 (9.4-12.3) fL Immature Gran % (Auto) 0.4 (0.0-0.4) % Neut % (Auto) 70.9 (45-73) % Lymph % (Auto) 19.3 L (20-40) % [place] % (Auto) 7.3 (2-11) % Eos % (Auto) 1.7 (0-4) % Baso % (Auto) 0.4 (0-2) % Lymph # (Auto) 1.5 (1.2-4.9) X10*3/uL [place] # (Auto) 0.6 (0.1-1.2) X10*3/uL Eos # (Auto) 0.1 (0.0-0.4) X10*3/uL Baso # (Auto) 0.0 (0.0-0.2) X10*3/uL Abs Immat Gran (auto) 0.03 (0.00-0.03) X10*3/uL Absolute Neuts (auto) 5.6 (2.0-8.3) x10*3/uL Absolute Nucleated RBC 0.000 (0.0-0.012) X10*3/uL Nucleated RBC % (auto) 0.0 (0.0-0.2) /100WBC PT 12.4 (10.9-12.4) SEC INR 1.1 (0.9-1.1) Sodium 141 (135-145) mmol/L Potassium 3.6 (3.3-5.1) mmol/L Chloride 109 H (96-108) mmol/L Carbon Dioxide 26 (22-29) mmol/L Anion Gap 10 L (12-20) BUN 12 (9-16) mg/dL Creatinine 0.68 (0.5-1.4) mg/dL Estim Creat Clear Calc 93.9 Estimated GFR > 60 Random Glucose 68 (60-115) mg/dL Calcium 10.0 (8.4-10.2) mg/dL Magnesium 2.1 (1.6-2.6) mg/dL Total Bilirubin 0.3 (0.0-1.0) mg/dL AST 23 (5-31) U/L ALT 28 (0-31) U/L Alkaline Phosphatase 63 (39-117) U/L Troponin I High Sens < 2.7 < 2.7 (<3.5-17.0) ng/L Total Protein 7.5 (6.5-8.0) g/dL Albumin 4.6 (3.5-5.0) g/dL TSH 0.81 (0.32-4.0) uIU/mL Beta HCG, Quant < 2 mIU/mL Urine Color Yellow Urine Appearance Clear Urine pH 7.0 (5.0-9.0) Ur Specific [place] 1.015 (1.005-1.025) Urine Protein Negative (Neg-Trace) mg/dL Urine Glucose (UA) Negative (Negative) mg/dL Urine Ketones Negative (Negative) mg/dL Urine Blood Negative (Negative) Urine Nitrite Negative (Negative) Ur Leukocyte Esterase Negative (Negative) Influenza Type A (PCR) NEGATIVE (Negative) Influenza Type B (PCR) NEGATIVE (Negative) RSV RNA Qual (PCR) NEGATIVE (Negative) SARS-CoV-2 RNA (RT-PCR) NEGATIVE (Negative) Independent Interpretation I performed an independent interpretation of an: EKG Interpretation: EKG NSR at a ventricular rate of 74 BPM, no ST elevation or depression Discharge Plan Discharge Clinical Impression: Positional lightheadedness Patient Disposition: Home, Self-Care Instructions: Lightheadedness (ED) Additional Instructions: You were seen in the emergency department today in your workup was reassuring. You need to follow-up with your primary care physician. Drink plenty of fluids get plenty of rest. Drinks electrolyte containing beverages. You may trial meclizine, this can help with vertigo-like symptoms. If any new or worsening symptoms occur including but not limited to severe chest pain, shortness of breath, intractable dizziness, severe headache, please seek emergent care. Prescriptions: New meclizine 12.5 mg tablet 12.5 mg PO TID PRN (Reason: dizziness) Qty: 14 0RF No Action trazodone 50 mg tablet 50 mg PO BEDTIME PRN (Reason: sleep) Qty: 7 0RF hydroxyzine pamoate 25 mg capsule 25 mg PO BEDTIME PRN (Reason: difficulty sleeping) Qty: 20 0RF Interventions: ED Discharge Assessment Last Done: 09/05/24 19:01 Discharge Date/Time: 09/05/24 19:02 Print Language: Ken[place]
--- NOTE | 2024-09-05 11:23 | ECG_ITS ---
Test Reason : CHEST PAIN Blood Pressure : */* mmHG Vent. Rate : 79 BPM Atrial Rate : 79 BPM P-R Int : 154 ms QRS Dur : 82 ms QT Int : 354 ms P-R-T Axes : * 139 -18 degrees QTcB Int : 405 ms Normal sinus rhythm Right axis deviation Low voltage QRS Cannot rule out Inferior infarct , age undetermined Cannot rule out Anterior infarct , age undetermined Abnormal ECG When compared with ECG of 08-Jun-2024 14:23, QRS axis Shifted right QRS voltage has decreased Nonspecific T wave abnormality now evident in Inferior leads Nonspecific T wave abnormality now evident in Anterior leads Referred By: Yuliya Soares Electronically Signed By: YVES ARRIOLA MD
[2024-09-05 12:03] LABS: MANUAL DIFF FLAG NO
[2024-09-05 12:05] LABS: Basophils Percent Auto 0.4 % (0-2); Eosinophils Absolute Auto 0.1 X10*3/uL (0.0-0.4); Eosinophils Percent Auto 1.7 % (0-4); Hematocrit 38.6 % (37.0-47.0); Hemoglobin 13.2 g/dl (12.0-16.0); Imm Gran Abs Auto 0.03 X10*3/uL (0.00-0.03); Imm Gran Pct Auto 0.4 % (0.0-0.4); Lymphocytes Absolute Auto 1.5 X10*3/uL (1.2-4.9); Lymphocytes Percent Auto 19.3 % (20-40); Mean Corpuscular HGB Conc 34.2 g/dl (31.0-35.0); Mean Corpuscular Hemoglobin 31.5 pg (27.0-33.0); Mean Corpuscular Volume 92.1 fL (80.0-98.0); Mean Platelet Volume 10.2 fL (9.4-12.3); Monocytes Absolute Auto 0.6 X10*3/uL (0.1-1.2); Monocytes Percent Auto 7.3 % (2-11); Neutrophils Absolute Auto 5.6 x10*3/uL (2.0-8.3); Neutrophils Percent Auto 70.9 % (45-73); Platelet Count 279 X10*3/uL (160-400); Red Blood Count 4.19 X10*6/uL (4.20-5.50); Red Cell Distribution Width 11.5 % (11.0-16.0); White Blood Count 7.8 X10*3/uL (4.8-10.8)
[2024-09-05 12:12] LABS: INTERNATIONAL NORM RATIO 1.1 (0.9-1.1); Prothrombin Time 12.4 SEC (10.9-12.4)
[2024-09-05 12:27] LABS: Alanine Aminotransferase 28 U/L (0-31); Albumin Level 4.6 g/dL (3.5-5.0); Alkaline Phosphatase 63 U/L (39-117); Anion Gap 10 (12-20); Aspartate Amino Transferase 23 U/L (5-31); Bilirubin Total 0.3 mg/dL (0.0-1.0); Blood Urea Nitrogen 12 mg/dL (9-16); Carbon Dioxide 26 mmol/L (22-29); Chloride 109 mmol/L (96-108); Creatinine Clr Calc Pharmacy 93.9; Estimated Glomerular Filt Rate > 60; Glucose Random 68 mg/dL (60-115); Magnesium 2.1 mg/dL (1.6-2.6); Potassium 3.6 mmol/L (3.3-5.1); Sodium 141 mmol/L (135-145); Total Protein 7.5 g/dL (6.5-8.0)
[2024-09-05 12:29] LABS: HCG Quantitative < 2 mIU/mL; Troponin-I High Sensitivity < 2.7 ng/L (<3.5-17.0)
[2024-09-05 12:34] LABS: Appearance Urine Clear; Color Urine Yellow; Glucose Urine UA Negative (Negative); Leukocyte Esterase Urine Negative (Negative); Nitrite Urine Negative (Negative); Specific Gravity - Urine 1.015 (1.005-1.025); Urine Blood Negative (Negative); Urine Ketones Negative (Negative); Urine Protein Negative (Neg-Trace)
[2024-09-05 12:39] LABS: TSH reflex Free T4 0.81 uIU/mL (0.32-4.0)
[2024-09-05 12:44] LABS: Influenza A PCR NEGATIVE (Negative); Influenza B PCR NEGATIVE (Negative); Resp Syncy Virus RNA Qual PCR NEGATIVE (Negative); SARS COV2 PCR INHOUSE NEGATIVE (Negative)
[2024-09-05 15:06] VITALS: BP 111/63; PULSE 80; RESP 18; TEMP 36.7; O2SAT 100
--- NOTE | 2024-09-05 16:52 | ECG_ITS ---
Test Reason : REPEAT Blood Pressure : */* mmHG Vent. Rate : 74 BPM Atrial Rate : 74 BPM P-R Int : 158 ms QRS Dur : 78 ms QT Int : 374 ms P-R-T Axes : 49 35 29 degrees QTcB Int : 415 ms Normal sinus rhythm with sinus arrhythmia Normal ECG When compared with ECG of 05-Sep-2024 11:44, QRS axis Shifted left Minimal criteria for Inferior infarct are no longer Present Nonspecific T wave abnormality, improved in Inferior leads Referred By: Cheryl Meeks Electronically Signed By: YVES ARRIOLA MD
[2024-09-05 17:18] VITALS: BP 114/73; BP 115/80; BP 117/81; PULSE 71; PULSE 82; PULSE 85
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
--- OUTSIDE RECORDS SUMMARY | 2024-09-05 17:32 | XMS_ITS | Encounter Summary ---
Author Organization [facility] Address [address] [place] [address] Care Team Providers Care Treadle Cut Off Saw Operator Name Role Phone Miko Lemus MD Primary Care Provider Reason for Visit * Reason Onset Date Comments Anxiety 08/13/2024 Encounter Details Date Type Department Care Team (Late st Contact Info) Description 08/13/2024 Telephone Adult Medicine [facility] [address] [place] [phone] Miko Lemus MD [address] [place] [address] Anxiety Social History Tobacco Use Types Packs/Day Years [...] as of this encounter Progress Notes * Angel Santos RN - 08/13/2024 12:05 PM EST Pt seen 11/28 for anxiety PLAN: Patient appears to have significant anxiety. I believe he most likely had adjustment disorder that has worsened into generalized anxiety, she recently moved back from [place] to [place]. She alsomentioned other family stresses during the visit as well. Resources of behavioral health and grief counseling given to the patient. Given the symptoms are interfering with her sleep, quality of life and preventing her from going back to work, will start her on treatment with SSRIs. Will start on Zoloft 25 mg. Advised that she can go up to 50 mg in 5 weeks. She will follow back in 2 months. Advised not to start the medication on her own as she will most likely need a taper. She can continue withtrazodone for insomnia. Refill sent. Side effects of trazodone, Zoloft discussed with the patient. Pt called after trazodone too sedating advised just to take Zoloft at night. Pt never call centers provided to her at appt. Pt stopped zoloft on her own has been months now. Never called for refill just stopped. Denies si/hi. Pt advised to call given number to [facility] also to call. Pt is also c/o flutter in right ear on and off x two weeks no pain no known injury sts when occurs gets dizzy feels balance is off. Pt sts did just start with a minor cold yesterday sl runny nose mild cough clear mucous no fever but sts had sx prior to this. Pt hasn't tested for covid advised to. Appt for tomorrow for evaluation. * Rashida Keane - 08/13/2024 11:39 AM EST Patient call requires triage: Symptoms patient is presenting: Ear pain, dizziness, anxiety. New patient appt 09/2024 How long has patient had these symptoms?: 2 weeks For ALL patients calling to schedule any [...] traveled recently to another state outside of [place], [place], [place], [place], [place], [place], [place]? no o If yes, did you quarantine [...] of accident/Injury: No If yes, gather 3rd green party insurance information Third Constitution Party Information: not applicable PCP: Miko Lemus MD Payor: / No coverage found. documented in this encounter Plan of Treatment Not on file documented as of this encounter Visit Diagnoses Not on filedocumented in this encounter Care Teams Treadle Cut Off Saw Operator Relationship Specialty Start Date End Date Miko Lemus MD [address] [place] [address] PCP - General 11/28/23 documented as of this encounter
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
[2024-09-05 17:37] LABS: Troponin-I High Sensitivity < 2.7 ng/L (<3.5-17.0)
[2024-09-05 18:22] VITALS: BP 99/53; PULSE 75; RESP 16; TEMP 36.7; O2SAT 99
[2024-09-05 19:01] VITALS: BP 99/53; PULSE 75; RESP 16; TEMP 36.7; O2SAT 99
== END 2024-09-05 19:02 | disposition home or self-care (01) ==
PROVIDERS: Physician Assistant Medical; Registered Nurse Emergency; Emergency Provider Emergency Medicine Emergency Medical Services; PCP Internal Medicine Nephrology
DX: R42 Dizziness and giddiness (principal); H53.8 Other visual disturbances; I49.8 Other specified cardiac arrhythmias; F41.9 Anxiety disorder, unspecified; R07.89 Other chest pain; Z03.818 Encounter for observation for suspected exposure to other biological agents ruled out; Z79.899 Other long term (current) drug therapy
CPT/HCPCS: 0241U; 36415; 80053; 81003; 83735; 84443; 84484; 84702; 85025; 85610; 93005; 99284

== ENCOUNTER → 2024-09-05 11:23 | Outpatient (BNV) | payer OTHER, SELFPAY | PROVIDERS: PCP Internal Medicine Nephrology; Visit Provider Internal Medicine Cardiovascular Disease | DX: R07.9 Chest pain, unspecified (principal) | CPT/HCPCS: 93010 ==